=== PATIENT | female | born 1975 | race Caucasian/White ===

== ENCOUNTER → 2016-10-21 | Outpatient (CLI) | payer OTHER ==
[2016-05-11 16:51] VITALS: BP 149/78
[~2016-10-21] MED LIST: OXYC5TAB PO
--- NOTE | 2016-10-21 13:18 | KCIC ---
Examination: Obstetric ultrasound less than 14 weeks HISTORY History of early , history of fibroids COMPARISON 10/13/2015. FINDINGS There is a 7.3 centimeter heterogeneous echogenicity identified in the uterus likely a fibroid. Intrauterine gestational sac is identified. A yolk sac is identified. A pole is identified with the crown-rump length measures 3 millimeters was corresponding to 5 weeks and 6 days. Gestational sac measures 1.4 centimeters corresponding to 6 weeks and 4 days. heart rate is 99 beats per minute. The right ovary measures 3.3 x 2.7 x 2.4 centimeters The left ovary measures 2.8 x 3.1 x 2.0 centimeters. LMP is 09/07/2016. Clinical age 6 weeks and 2 days. The gestational age per this ultrasound 6 weeks and 1 day. Expected date of delivery per LMP 06/14/2017. Expected date of delivery by this ultrasound 06/15/2017. IMPRESSION 1. Single living intrauterine fetus identified with heart rate of 99 beats per minute. Gestational age is 6 weeks and 1 day of with estimated delivery 06/15/2017 per this ultrasound. 2. 7.3 centimeter heterogeneous echogenicity identified in the uterus likely a fibroid. Electronically signed by: Roshan Zendejas (Oct 21, 2016 13:17:11)
== END | disposition home or self-care (01) ==
LOC: KCIC US 12:20
PROVIDERS: ATTEND Nurse Practitioner Women's Health
DX: Z34.01 Encounter for supervision of normal first pregnancy, first trimester (principal); Z87.42 Personal history of other diseases of the female genital tract; Z3A.01 Less than 8 weeks gestation of pregnancy
CPT/HCPCS: 76801; 76817

== ENCOUNTER → 2016-11-20 | Outpatient (CLI) | payer OTHER ==
[2016-05-11 16:51] VITALS: BP 149/78
[2016-11-20 14:24] LABS: BASO % 0 % (0-3); EOS % 0 % (0-3); HEMATOCRIT 37.7 % (36.0-47.0); HEMOGLOBIN 12.7 g/dL (12.0-15.5); LYMPH # 1.9 x10^3/uL (1.0-4.8); LYMPH % 18 % (24-48); MEAN CORPUSCULAR HEMOGLOBIN 26 pg (25-35); MEAN CORPUSCULAR HGB CONC 34 g/dL (31-37); MEAN CORPUSCULAR VOLUME 79 fL (79-100); MONO % 6 % (0-9); NEUT % 75 % (31-73); PLATELET COUNT 357 x10^3/uL (140-400); RED CELL DISTRIBUTION WIDTH 15.2 % (11.5-14.5); WHITE BLOOD COUNT 10.4 x10^3/uL (4.0-11.0)
== END | disposition home or self-care (01) ==
LOC: SPEC 13:25
PROVIDERS: ATTEND Nurse Practitioner Women's Health
DX: O09.521 Supervision of elderly multigravida, first trimester (principal)
CPT/HCPCS: 36415; 84443; 85027; 86593; 86703; 86803; 86850; 86900; 86901; 87340; 87341

== ENCOUNTER 2017-02-27 12:46 | Observation (INO) | payer OTHER ==
[2016-05-11 16:51] VITALS: BP 149/78
[2017-02-27] MEDS ORDERED: IV RINGERS,LACTATED 1000ML 1,000 ML IV SCH ×2 (13:01)
[2017-02-27] MEDS ORDERED: PROMETHAZINE 12.5 MG TABLET. PO PRN (13:15)
[2017-02-27] MEDS ORDERED: ONDANSETRON PF 4 MG/2 ML VIAL. IV PRN (13:15)
[2017-02-27 13:25] LABS: BILIRUBIN,URINE NEGATIVE (NEG); GLUCOSE,URINE NEGATIVE (NEG); NITRITE,URINE NEGATIVE (NEG); PROTEIN,URINE NEGATIVE (NEG-TRACE)
[2017-02-27 13:41] LABS: BACTERIA,URINE 0 /HPF (0-FEW); RBC,URINE OCC /HPF (0-2); SQUAMOUS EPITHELIAL CELL,UR MOD /LPF
[2017-02-27 13:50] LABS: BASO % 0 % (0-3); EOS % 0 % (0-3); HEMATOCRIT 38.9 % (36.0-47.0); HEMOGLOBIN 12.9 g/dL (12.0-15.5); LYMPH # 1.3 x10^3/uL (1.0-4.8); LYMPH % 15 % (24-48); MEAN CORPUSCULAR HEMOGLOBIN 27 pg (25-35); MEAN CORPUSCULAR HGB CONC 33 g/dL (31-37); MEAN CORPUSCULAR VOLUME 81 fL (79-100); MONO % 5 % (0-9); NEUT % 80 % (31-73); PLATELET COUNT 279 x10^3/uL (140-400); RED BLOOD COUNT 4.81 x10^6/uL (3.50-5.40); RED CELL DISTRIBUTION WIDTH 14.9 % (11.5-14.5); WHITE BLOOD COUNT 8.9 x10^3/uL (4.0-11.0)
[2017-02-27 14:01] LABS: CALCIUM 8.9 mg/dL (8.5-10.1); CREATININE 0.4 mg/dL (0.6-1.0); GFR 177.7
[2017-02-27] MEDS ORDERED: ACETAMINOPHEN 500 MG TABLET PO ONE (15:30)
== END 2017-02-27 16:45 | disposition home or self-care (01) ==
LOC: 3 SO LND 12:46
PROVIDERS: ADMIT Specialist; ATTEND Specialist
DX: O21.2 Late vomiting of pregnancy (principal); O26.892 Other specified pregnancy related conditions, second trimester; R11.0 Nausea; R19.7 Diarrhea, unspecified; Z3A.24 24 weeks gestation of pregnancy
CPT/HCPCS: 36415; 80048; 81001; 85027; 96361; 96374; G0378; G0379; J2405; J7120